=== PATIENT | female | born 1970 | race Two or more races ===

== ENCOUNTER 2018-06-25 13:36 | Emergency (ER) | payer OTHER ==
[2018-06-25 13:43] VITALS: BP 121/73
--- NOTE | 2018-06-25 13:52 | UC ---
Respiratory Complaint HPI - HPI Summary HPI Summary: 47 yo female presents with a dry cough for the last 4 days. Tickle in her throat causing her to cough with intermittent feeling like she cannot take a deep breath. She has been taking robitussin OTC with no relief. Denies fever, chills, sinus symptoms, SOB, chest pain. Non smoker. - History of Current Complaint Chief Complaint: UCRespiratory Stated Complaint: COUGH Time Seen by Provider: 06/25/18 13:51 Hx Obtained From: Patient Hx Last Menstrual Period: 06/05/18 Onset/Duration: Gradual Onset Severity Initially: Mild Severity Currently: Moderate Pain Intensity: 6 Pain Scale Used: 0-10 Numeric Character: Cough: Nonproductive - Allergies/Home Medications Allergies/Adverse Reactions: Allergies Allergy/AdvReac Type Severity Reaction Status Date / Time No Known Allergies Allergy Verified 06/25/18 13:43 PMH/Surg Hx/FS Hx/Imm Hx - Additional Past Medical History Additional PMH: None - Surgical History Surgical History: None - Family History Known Family History: Positive: None - Social History Occupation: Employed Full-time Lives: With Family Alcohol Use: Rare Substance Use Type: None Smoking Status (MU): Never Smoked Tobacco Review of Systems All Other Systems Reviewed And Are Negative: Yes Constitutional: Positive: Negative Skin: Positive: Negative Eyes: Positive: Negative ENT: Positive: Negative Respiratory: Positive: Cough Cardiovascular: Positive: Negative Gastrointestinal: Positive: Negative Neurological: Positive: Negative Psychological: Positive: Negative Physical Exam - Summary Physical Exam Summary: GENERAL: NAD. WDWN. No pain distress. SKIN: No rashes, sores, lesions, or open wounds. HEENT: Head: AT/NC Eyes: EOM intact. Conjunctiva clear without inflammation or discharge. Ears: Hearing grossly normal. TMs intact, no bulging, erythema, or edema. Nose: Nasal mucosa pink and moist. NTTP maxillary and frontal sinus. Throat: Posterior oropharynx without exudates, erythema, or tonsillar enlargement. Uvula midline. NECK: Supple. Nontender. No lymphadenopathy. CHEST: CTAB. No r/r/w. No accessory muscle use. Breathing comfortably and in no distress. CV: RRR. Without m/r/g. Pulses intact. Cap refill <2seconds NEURO: Alert. PSYCH: Age appropriate behavior. Triage Information Reviewed: Yes Vital Signs: Initial Vital Signs Temp 98.1 F 06/25/18 13:38 Pulse 82 06/25/18 13:38 Resp 16 06/25/18 13:38 BP 121/73 06/25/18 13:38 Pulse Ox 100 06/25/18 13:38 Vital Signs Reviewed: Yes UC Diagnostic Evaluation - Laboratory O2 Sat by Pulse Oximetry: 100 Respiratory Course/Dx - Course Course Of Treatment: She was given a duoneb treatment with mild relief of symptoms and felt it was easier to take a deep breath. Suspect URI/Bronchitis - rx for tessalon and RTC if symptoms worsen or persist. - Differential Dx/Diagnosis Provider Diagnosis: Viral URI Discharge - Sign-Out/Discharge Documenting (check all that apply): Patient Departure All imaging exams completed and their final reports reviewed: No Studies - Discharge Plan Condition: Stable Disposition: HOME Prescriptions: Benzonatate CAP* [Tessalon 100 MG CAP*] 100 mg PO TID PRN #21 cap PRN Reason: Cough Patient Education Materials: Upper Respiratory Infection (ED) Referrals: Lenora Campbell MD [Primary Care Provider] - Additional Instructions: If you develop a fever, shortness of breath, chest pain, new or worsening symptoms - please call your PCP or go to the ED. - Billing Disposition and Condition Condition: STABLE Disposition: Home - Attestation Statements Provider Attestation: I was available for consult. This patient was seen by the JOSE. The patient was not presented to, seen by, or examined by me. -Oliver
[2018-06-25] MEDS ORDERED: Albuterol/Ipratropium NEB.SOL* Albuterol 2.5 MG/Ipratropium 0.5 MG 3 ML INH ONE (14:06)
== END 2018-06-25 14:30 | disposition home or self-care (01) ==
LOC: UCEAST 13:36
DX: J06.9 Acute upper respiratory infection, unspecified (principal)
CPT/HCPCS: 99212; A9270-GY; G0463

== ENCOUNTER 2018-09-12 09:51 | Emergency (ER) | payer OTHER ==
[2018-09-12 10:00] VITALS: BP 108/65
[2018-09-12] MEDS ORDERED: Albuterol/Ipratropium NEB.SOL* Albuterol 2.5 MG/Ipratropium 0.5 MG 3 ML INH ONE (10:58)
--- NOTE | 2018-09-12 11:05 | ED ---
Respiratory - HPI Summary HPI Summary: 48 yo WF c/o SOB x 2-3 days associated with "Pleurisy" that was dx'd 2 weeks ago. On Albuterol INH PRN but SOB IS NOT helped by it AT ALL. Pt has had recent h/o bronchitis with persistent CP with SOB, went to ED, did CTA which was NEG for PE but still c/o SOB. Never had h/o asthma or RAD - History of Current Complaint Chief Complaint: UCRespiratory Stated Complaint: SHORTNESS OF BREATHE Time Seen by Provider: 09/12/18 10:02 Hx Obtained From: Patient, Family/Fire Fighters Dispatcher Pain Intensity: 0 - Allergy/Home Medications Allergies/Adverse Reactions: Allergies Allergy/AdvReac Type Severity Reaction Status Date / Time No Known Allergies Allergy Verified 09/12/18 10:01 PMH/Surg Hx/FS Hx/Imm Hx Cardiovascular History: Denies: Hx Hypertension Respiratory History: Denies: Hx Asthma History: Reports: Hx Kidney Stones Sensory History: Reports: Hx Contacts or Glasses Opthamlomology History: Reports: Hx Contacts or Glasses - Cancer History Hx Chemotherapy: No Hx Radiation Therapy: No - Surgical History Surgery Procedure, Year, and Place: None reported Infectious Disease History: No Infectious Disease History: Denies: Traveled Outside the [place] in Last 30 Days - Family History Known Family History: Positive: Other - Grandparents had blood clots - Social History Alcohol Use: Rare Hx Substance Use: No Substance Use Type: Reports: None Hx Tobacco Use: No Smoking Status (MU): Never Smoked Tobacco Review of Systems All Other Systems Reviewed And Are Negative: Yes Physical Exam - Summary Physical Exam Summary: Vital Signs Reviewed: Yes Skin: Positive: Warm Head/Face: Positive: Normal Head/Face Inspection Eyes: Positive: Normal ENT: Positive: Normal ENT inspection Neck: Positive: Supple Respiratory/Lung Sounds: Positive: Clear to Auscultation, NEG wheezes, rhonchi, BS somewhat coarse Cardiovascular: Positive: Normal, RRR, S1, S2 Abdomen Description: Positive: Nontender Musculoskeletal: Positive: Normal Neurological: Positive: Normal Psychiatric: Positive: Normal, Affect/Mood Appropriate Vital Signs On Initial Exam: Initial Vitals Temp Pulse Resp BP Pulse Ox 37.4 C 88 16 108/65 100 09/12/18 09:57 09/12/18 09:57 09/12/18 09:57 09/12/18 09:57 09/12/18 09:57 Diagnostics - Vital Signs Vital Signs Temp Pulse Resp BP Pulse Ox 09/12/18 09:57 37.4 C 88 16 108/65 100 - Laboratory Lab Statement: Any lab studies that have been ordered have been reviewed, and results considered in the medical decision making process. Disposition - Course Course Of Treatment: persistent SOB- CXR - mild right mid and RLL haziness with recent h/o bronchitis, willt tx for atypical PNA- Neg PE by CTA on 08/25/2018- will tx with Azithromycin - Diagnoses Provider Diagnoses: Atypical pneumonia Discharge - Sign-Out/Discharge Documenting (check all that apply): Patient Departure All imaging exams completed and their final reports reviewed: Yes - Discharge Plan Condition: Stable Disposition: HOME Prescriptions: Azithromyxin PENG (NF) [Z-Peng (Zithromax) 250 mg tabs #6] 2 tab PO .TODAY, THEN 1 DAILY #6 tab ceFUROXime TAB(*) [Ceftin TAB 250 MG(*)] 500 mg PO BID 7 Days #14 tab Patient Education Materials: Pneumonia (ED) Referrals: Lenora Campbell MD [Primary Care Provider] - Additional Instructions: follow up with consumer marketing analyst if symptoms persist on the antibiotic - Billing Disposition and Condition Condition: STABLE Disposition: Home
== END 2018-09-12 12:11 | disposition home or self-care (01) ==
LOC: UCEAST 09:51
DX: J18.9 Pneumonia, unspecified organism (principal)
CPT/HCPCS: 71046; 99212; A9270-GY; G0463

== ENCOUNTER 2019-05-14 17:31 | Emergency (ER) | payer OTHER ==
[2019-05-14 18:18] VITALS: BP 97/56
--- NOTE | 2019-05-14 19:23 | UC ---
Eye Complaint HPI - HPI Summary HPI Summary: 48 year old female with no eye problems in past, no recent infections, not a contact lens wearer, presents with right eye watering x ~ 1 week. during this time, not painful, over past 1-2 days the inner portion of the eye has become tender to the touch. - History of Current Complaint Chief Complaint: UCEye Stated Complaint: EYE IRRITATION Time Seen by Provider: 05/14/19 19:06 Hx Obtained From: Patient Hx Last Menstrual Period: 04/28/19 ?: No Onset/Duration: Sudden Onset, Lasting Days, Still Present, Worse Since - 24 hours Timing: Constant Severity Initially: Mild Severity Currently: Moderate Pain Intensity: 6 Pain Scale Used: 0-10 Numeric Location of Injury: Other Character: Sharp - with touch, Throbbing Alleviating Factor(s): Nothing Associated Signs And Symptoms: Positive: Drainage (Clear). Negative: Photophobia, Drainage (Purulent), Vision Impairment Bilateral, Vision Impairment Right, Vision Impairment Left, Fever, Swelling - Allergies/Home Medications Allergies/Adverse Reactions: Allergies Allergy/AdvReac Type Severity Reaction Status Date / Time No Known Allergies Allergy Verified 05/14/19 18:18 PMH/Surg Hx/FS Hx/Imm Hx Previously Healthy: Yes - Surgical History Surgical History: None Surgery Procedure, Year, and Place: None reported - Family History Known Family History: Positive: Cardiac Disease, Other - Grandparents had blood clots, Non-Contributory - Social History Alcohol Use: Rare Substance Use Type: None Smoking Status (MU): Never Smoked Tobacco Review of Systems All Other Systems Reviewed And Are Negative: Yes Constitutional: Positive: Negative Eyes: Positive: Drainage - right eye Psychological: Positive: Negative Is Patient Immunocompromised?: No Physical Exam Triage Information Reviewed: Yes Appearance: Well-Appearing, No Pain Distress, Well-Nourished Vital Signs: Initial Vital Signs Temp 98.4 F 05/14/19 18:13 Pulse 72 05/14/19 18:13 Resp 16 05/14/19 18:13 BP 97/56 05/14/19 18:13 Pulse Ox 100 05/14/19 18:13 Vital Signs Reviewed: Yes Eyes: Positive: Conjunctiva Clear, Other: - EMOI, PERRLA watery drainage noted ENT: Positive: Hearing grossly normal, Pharynx normal, TMs normal, Uvula midline. Negative: Nasal congestion, TM bulging, TM dull, TM red, Tonsillar swelling, Tonsillar exudate, Sinus tenderness Neck: Positive: Supple, Nontender, No Lymphadenopathy. Negative: Nuchal Rigidity, Enlarged Nodes @ Eye Complaint Course/Dx - Course Course Of Treatment: blocked tear duct - Warm compresses 3-4 times daily - ANtibiotics as directed - ERythromycin eye ointment as directed - Motrin/ tylenol as needed for pain - Differential Dx/Diagnosis Provider Diagnosis: Blocked tear duct Discharge ED - Sign-Out/Discharge Documenting (check all that apply): Patient Departure All imaging exams completed and their final reports reviewed: No Studies - Discharge Plan Condition: Good Disposition: HOME Prescriptions: Clindamycin HCl 150 mg PO QID #28 capsule Erythromycin OPTH OINT* [Erythromycin 0.5% OPTH OINT*] 1 applic RIGHT EYE TID # 1 ophth.oint Patient Education Materials: Blocked Tear Duct (ED) Referrals: Lenora Campbell MD [Primary Care Provider] - Additional Instructions: - Warm compresses 3-4 times daily - ANtibiotics as directed - ERythromycin eye ointment as directed - Motrin/ tylenol as needed for pain - Billing Disposition and Condition Condition: GOOD Disposition: Home
== END 2019-05-14 19:43 | disposition home or self-care (01) ==
LOC: UCEAST 17:31
DX: H04.551 Acquired stenosis of right nasolacrimal duct (principal)
CPT/HCPCS: 99211; G0463

== ENCOUNTER 2019-09-24 11:48 | Day surgery (SDC) | payer OTHER ==
[~2019-09-24 11:48] MED LIST: Buffered Lidocaine 1% SYRIN* 1 ML/SYRINGE INTRADERM ONE; Famotidine IV* 10 MG/ML 2 ML (20 mg) IV ONE; Lactated Ringers 1000 ML Bag* 1,000 ML IV SCH
[2019-09-24] MEDS ORDERED: Acetaminophen TAB* 325 MG PO PRN (12:12)
[2019-09-24] MEDS ORDERED: BSS OPTH.SOL* BTL ONE (12:26)
[2019-09-24] MEDS ORDERED: Lidocaine 4% TOPICAL* 50 ML TOP.SOLN ONE (12:27)
[2019-09-24] MEDS ORDERED: Oxymetazoline 0.05% NASAL SPR* 15 ML BTL ONE (12:28)
[2019-09-24] MEDS ORDERED: Neomycin/Polymy/Dex OPHTH.OIN* 3.5 GM ONE (12:29)
[2019-09-24] MEDS ORDERED: Neomycin/Polymy/Dex OPTH.SUSP* MAXITROL 0.1% 5 ML ONE (12:29)
[2019-09-24] MEDS ORDERED: Famotidine IV* 10 MG/ML 2 ML (20 mg) ONE (12:37)
[2019-09-24] MEDS ORDERED: fentaNYL* 50 MCG/ML 2 ML VIAL (100 MCG VIAL) ONE (13:33)
[2019-09-24] MEDS ORDERED: Midazolam* 1 MG/ML 5 ML VIAL (5 MG) ONE (13:34)
[2019-09-24] MEDS ORDERED: Rocuronium* 10 MG/ML VIAL ONE (13:35)
[2019-09-24] MEDS ORDERED: DiMENhydriNATE IV* 50 MG/ML VIAL ONE (14:11)
[2019-09-24] MEDS ORDERED: Propofol* 10 MG/ML 20 ML BTL ONE (14:11)
[2019-09-24] MEDS ORDERED: Ondansetron INJ* 2 MG/ML VIAL ONE (14:11)
[2019-09-24] MEDS ORDERED: Dexamethasone IV* 4 MG/ML 1 ML (4 MG) ONE (14:11)
[2019-09-24] MEDS ORDERED: Succinylcholine* 20 MG/ML 10 ML VIAL ONE (14:11)
--- NOTE | 2019-09-24 15:14 | OP ---
DATE OF OPERATION: 09/24/19 [facility] DATE OF : 72 SURGEON: Kenneth Carroll MD PAINTER SPRING: None. PRE-OP DIAGNOSIS: Nasolacrimal duct obstruction, right side. POST-OP DIAGNOSIS: Nasolacrimal duct obstruction, right side. OPERATIVE PROCEDURE: Probe and irrigation with Randolph tube placement, right nasolacrimal duct. COMPLICATIONS: None. BLOOD LOSS: Less than 5 cc. DESCRIPTION OF PROCEDURE: The patient was brought to the operating room and received general anesthesia. A drop of tetracaine was placed into her right eye. A pledget soaked in a 50:50 mixture of 1% lidocaine and Afrin was inserted into her right nostril. Attention was directed to the right eye and the superior punctum was located. It was dilated with a punctal dilator. A #0-0 Kwok's probe was passed through the puncta and into the extent of the nasolacrimal duct such that metal- on-metal contact could confirm full passage into the nose. This was then removed. The inferior puncta was dilated and probed in similar fashion. The superior puncta was reexamined. A Randolph tube was placed through the superior puncta led by the metal olive tip leader. The pledget had been removed from the nose and a hook was placed into the nose to retrieve the olive- tipped end of the Randolph tube. It was atraumatically withdrawn through the nostril. In similar fashion, the other aspect of the Randolph tube was placed through the inferior puncta and withdrawn through the nose. The metal tips were cut. The silicone tubes were tied securely and the knot was trimmed. Knot was allowed retract into the nose. Care was taken to neither put too much tension nor laxity on the tube as it passed from superior to inferior puncta. A small amount of bleeding was noted and it stopped spontaneously. Maxitrol ointment was placed into the inferior fornix of the conjunctiva of the right eye. The patient was suctioned and awakened uneventfully. She was then sent to the recovery room in stable condition with postop instructions and followup appointment given. [id number]/[facility] #: [id number] MARIA EUGENIA
[2019-09-24 15:25] VITALS: BP 105/59
== END 2019-09-24 15:53 | disposition home or self-care (01) ==
LOC: OREAST 11:48
PROVIDERS: ATTEND Ophthalmology
DX: H04.551 Acquired stenosis of right nasolacrimal duct (principal); R01.1 Cardiac murmur, unspecified
CPT/HCPCS: 81025; A9270-GY; J0330; J1100; J1240; J2250; J2405; J2704; J3010